=== PATIENT | male | born 1940 | race Caucasian/White ===

== ENCOUNTER → 2024-02-24 | Day surgery (SDC) | payer MEDICARE, OTHER, SELFPAY ==
[2024-02-24 10:10] VITALS: BP 122/78; PULSE 89; RESP 18; TEMP 36.6; O2SAT 95; BMI 26.8
[2024-02-24] MEDS: MANNITOL IV (10:38)
[2024-02-24] MEDS: ZOLEDRONIC ACID IV (10:38)
[2024-02-24 11:05] VITALS: BP 133/77; PULSE 87; RESP 18; TEMP 36.6; O2SAT 96
== END | disposition home or self-care (01) ==
PROVIDERS: PCP Family Medicine; Referring Provider Family Medicine; Visit Provider Family Medicine
PROC: (CPT 96365; principal; 2024-02-24 10:00)
DX: M81.0 Age-related osteoporosis without current pathological fracture (principal)
CPT/HCPCS: 96365; J3489

== ENCOUNTER → 2024-04-21 | Outpatient (CLI) | payer MEDICARE, OTHER, SELFPAY ==
[2024-04-21 09:11] LABS: Collection Type, Urine Clean Catch
[2024-04-21 09:27] LABS: Basophils # (Auto) 0.1 Thou/mm3 (0.0-0.2); Basophils % (Auto) 1 % (0-2.5); Eosinophils # (Auto) 0.5 Thou/mm3 (0.0-0.5); Eosinophils % (Auto) 6 % (0-10); Hematocrit 40.8 % (41.0-53.0); Hemoglobin 13.7 g/dL (13.5-16.0); Immature Granulocytes % (Auto) 1 % (0-0); Immature Granulocytes Auto 0.05 Thou/mm3 (0.00-0.00); Lymphocytes % (Auto) 12 % (10-50); Mean Corpuscular HGB Conc 33.6 g/dl (31.0-37.0); Mean Corpuscular Hemoglobin 29.6 pg (25.0-35.0); Mean Corpuscular Volume 88 fL (80-100); Monocytes % (Auto) 11 % (0-12); Neutrophils # (Auto) 6.1 Thou/mm3 (1.8-7.7); Neutrophils % (Auto) 70 % (37-80); Nucleated Red Blood Cell % 0 /100 WBC (0); Platelet Count 264 Thou/mm3 (140-440); RDW Standard Deviation 40.7 fL (35.1-43.9); Red Blood Count 4.63 Miln/mm3 (4.50-5.90); White Blood Count 8.7 Thou/mm3 (3.8-10.6)
[2024-04-21 09:30] LABS: Bilirubin,Urine Negative (Negative); Blood,Urine Negative (Negative); Clarity,Urine Clear (Clear/Hazy); Color,Urine Yellow (Lt Yel-Yel); Culture Indicated,Urine Not Indicated; Glucose, Urine Negative (Negative); Ketones,Urine Negative (Negative); Leukocyte Esterase,Urine Negative (Negative); Nitrite,Urine Negative (Negative); Protein,Urine 1+ (Neg - Trace); RBC,Urine 2 /hpf (0-3); Specific Gravity,Urine 1.026 (1.001-1.035); Squamous Epithelial Cell,Urine < 1 /hpf (0-5); Urobilinogen,Urine Negative mg/dL (0.0-1.0); WBC,Urine 1 /hpf (0-5)
[2024-04-21 09:48] LABS: Vitamin B12 310 pg/mL (211-911); Vitamin D 25 Hydroxy Total 42.7 ng/mL (7.3-40.2)
--- NOTE | 2024-04-21 10:00 | XR_ITS ---
Examination: Thyroid sonography complete Technique: Grayscale sonographic images thyroid lobes are carful analysis Exam date and time: Every 14/07/2024 0919 hrs. Indications: Left thyroid nodule 16 mm on ultrasound soft tissue neck study July 12, 2021 Findings: Right thyroid 4.1 x 1.8 cm No solid nodules Left thyroid 4.1 x 1.5 cm Lower pole left thyroid nodule with vascularity 13 x 15 x 13 mm Impression: Vascular lower pole left thyroid nodule, consider ultrasound-guided fine-needle aspiration of this nodule, as clinically warranted
[2024-04-21 10:02] LABS: Anion Gap 7 (7-16); BUN/Creatinine Ratio 19 Ratio (12-20); Blood Urea Nitrogen 23 mg/dL (9-23); Carbon Dioxide 28.2 mMol/L (20.0-31.0); Chloride 105 mMol/L (98-107); Creatinine (Component) 1.2 mg/dL (0.6-1.3); Glucose 92 mg/dL (74-106); Potassium 4.5 mMol/L (3.4-5.1); Sodium 140 mMol/L (136-145); eGFR 59 See Note
[2024-04-21 10:03] LABS: Alanine Aminotransferase 13 U/L (10-49); Albumin, Serum 4.3 gm/dL (3.4-4.8); Aspartate Amino Transferase 15 U/L (0-34); Bilirubin,Total 0.7 mg/dL (0.3-1.2); Calcium 9.6 mg/dL (8.3-10.6); Calcium (Corrected) 9.6 mg/dL (8.5-10.1); Globulin 2.2 gm/dL (2.3-3.5); Osmolality,Calculated 283 (275-295); Thyroid Stimulating Hormone 0.98 uIU/mL (0.55-4.78); Total Protein 6.5 gm/dL (5.7-8.2)
[2024-04-21 10:14] LABS: Alkaline Phosphatase 49 U/L (46-116)
== END | disposition home or self-care (01) ==
LOC: CDIM 08:40
PROVIDERS: PCP Family Medicine; Referring Provider Physician Assistant; Visit Provider Physician Assistant
DX: E04.1 Nontoxic single thyroid nodule (principal); E55.9 Vitamin D deficiency, unspecified; I10 Essential (primary) hypertension; M81.0 Age-related osteoporosis without current pathological fracture; R31.9 Hematuria, unspecified; R80.9 Proteinuria, unspecified; Z04.1 Encounter for examination and observation following transport accident; Z85.038 Personal history of other malignant neoplasm of large intestine
CPT/HCPCS: 36415; 76536; 80053; 80061; 81001; 82306; 82607; 84153; 84443; 85025

== ENCOUNTER 2024-05-20 10:50 | Outpatient (RCR) | payer MEDICARE, OTHER, SELFPAY ==
[2024-05-19 10:08] LABS: Basophils # (Auto) 0.1 Thou/mm3 (0.0-0.2); Basophils % (Auto) 1 % (0-2.5); Eosinophils # (Auto) 0.4 Thou/mm3 (0.0-0.5); Eosinophils % (Auto) 6 % (0-10); Immature Granulocytes % (Auto) 0 % (0-0); Immature Granulocytes Auto 0.02 Thou/mm3 (0.00-0.00); Lymphocytes # (Auto) 1.4 Thou/mm3 (1.0-4.8); Lymphocytes % (Auto) 20 % (10-50); Mean Corpuscular HGB Conc 34.2 g/dl (31.0-37.0); Mean Corpuscular Hemoglobin 29.6 pg (25.0-35.0); Mean Corpuscular Volume 87 fL (80-100); Monocytes # (Auto) 0.9 Thou/mm3 (0.0-0.8); Monocytes % (Auto) 13 % (0-12); Neutrophils % (Auto) 59 % (37-80); Nucleated Red Blood Cell % 0 /100 WBC (0); Platelet Count 299 Thou/mm3 (140-440); RDW Standard Deviation 39.9 fL (35.1-43.9); Red Blood Count 4.39 Miln/mm3 (4.50-5.90); White Blood Count 6.8 Thou/mm3 (3.8-10.6)
[2024-05-19 10:30] LABS: Carcinoembryonic Antigen 1.7 ng/mL (0.0-5.0)
[2024-05-19 10:40] LABS: Alanine Aminotransferase < 7 U/L (10-49); Albumin, Serum 4.2 gm/dL (3.4-4.8); Albumin/Globulin Ratio 1.8 (1.2-2.2); Alkaline Phosphatase 54 U/L (46-116); Anion Gap 9 (7-16); Aspartate Amino Transferase 15 U/L (0-34); BUN/Creatinine Ratio 15 Ratio (12-20); Bilirubin,Total 0.7 mg/dL (0.3-1.2); Blood Urea Nitrogen 17 mg/dL (9-23); Calcium 9.2 mg/dL (8.3-10.6); Calcium (Corrected) 9.2 mg/dL (8.5-10.1); Carbon Dioxide 25.5 mMol/L (20.0-31.0); Chloride 105 mMol/L (98-107); Creatinine (Component) 1.1 mg/dL (0.6-1.3); Globulin 2.4 gm/dL (2.3-3.5); Glucose 102 mg/dL (74-106); Osmolality,Calculated 279 (275-295); Potassium 4.2 mMol/L (3.4-5.1); Sodium 139 mMol/L (136-145); Total Protein 6.6 gm/dL (5.7-8.2); eGFR > 60 See Note
--- NOTE | 2024-05-25 00:16 | CTCFLWUP_ITS ---
Patient: KHALIF BAKER : 1940 Page 4 of 5 FOLLOW UP NOTE DATE OF SERVICE: 05/20/2024 NAME: KHALIF BAKER ACCOUNT: [id number] : 1940 AGE: 83 INTERVAL HISTORY: Patient here to follow-up on the history of rectal cancer. Patient have no new complaints. 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 REASON FOR TODAY?S VISIT: This is office follow-up visit. Mr. Baker is here at [facility] accompanied by his sister. He is clinically doing well. Denies any complaints. Denies any pain in the back. Denies any cough, chest pain, abdominal pain or leg cramps. Ambulating with the help of a cane. Has good appetite and good energy levels. Denies any weight loss. 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 Patient has been having rectal bleeding for about 1 year along with intermittent constipation prior to the surgery. 02/12/2018: Patient had colonoscopy. Biopsies were taken from mass in the rectosigmoid area. Pathology showed superficial colorectal mucosa. 03/04/2018: A CT scan of the chest abdomen pelvis with IV contrast was done at [facility] which showed a large sigmoid colon mass of at least 8 cm in length in the sigmoid colon with wall thickening extending into rectal region. No perirectal lymphadenopathy was noted. No mediastinal or pulmonary parenchymal nodules or liver lesions were identified. No evidence of retro- peritoneal lymphadenopathy on the CT scans. 03/10/2018: Patient had a repeat flexible sigmoidoscopy with multiple biopsies of the rectosigmoid mass. Pathology showed moderately differentiated adenocarcinoma. Molecular profiling showed K-tk mutation. No mutations were found in B-cora, Nras, Hras genes. No loss of expression of major mismatch r epair proteins. PDL 1 tumor proportion score 5%, positive. 03/25/2018: Patient had rectosigmoidectomy, coloproctostomy as well as incidental appendectomy. Patient tolerated surgery very well and recovered without any complications. Surgical pathology specimen showed 9.5 x 7 x 1.5 cm grade 2 mucinous adenocarcinoma with tumor penetration of muscularis propria and involvement of subserosal tissue. Lymphovascular invasion as well as perineural invasion were negative. 11 out of 22 lymph nodes were positive for metastatic carcinoma. The largest positive node measures 1.3 cm in size. It was staged as a pT3, pN2b, cM0, stage IIIc colonic adenocarcinoma. 05/02/2018: PET CT scan was done. It was a negative study for metastatic disease. 05/28/2018? 08/06/2018: Patient received 6 doses of modified FOLFOX 6 in the adjuvant setting. 09/08/2018: Patient was started on chemoradiation. He is taking Xeloda as a radiosensitizing agent. 01/02/2019: PET CT scan?negative for metastatic disease. 01/09/2019: CT scan of the chest abdomen and pelvis with IV contrast?negative for metastatic disease. 08/18/2018: CEA 1.1. 01/14/2019: CEA 1.2. 05/12/2019: CEA is 1.2 08/07/2019: PET CT scan?negative for metastatic disease. 08/12/2019: CEA 0.7. 12/16/2019: CEA 1.0. 04/20/2020: CEA 1.4. 06/05/2022: CT scan of the chest abdomen and pelvis with IV contrast 10/12/2022: CEA 1.6. 05/17/2023: CEA 1.3. 11/19/2023: CEA 1.7. OTHER MEDICAL HISTORY/CONDITIONS: FAMILY HISTORY: ?Clone Family Hx? SOCIAL HISTORY: MEDICATIONS: 1. amlodipine besylate (bulk) - 10 mg Daily 2. benazepril - 20 mg Daily 3. Calcium + D - 600 mg(1,500mg) -200 unit 1 tab Daily 4. Evenity - 105 mg/1.17 mL 2 Monthly 5. Hydrocortisone (Topical) - 1 % 1 As directed 6. ketoconazole - 2 % 1 As directed 7. omeprazole - 10 mg 1 Capsule Daily 8. Prolia - 60 mg/mL As directed 9. Vitamin D3 - 2,000 unit 1 Capsule Daily?Palabra Meds? Medications Last Reconciled by Kia Qiu MA on 05/20/2024 ALLERGIES: No Known Allergies REVIEW OF SYSTEMS: A complete 14-point review of systems was performed and is negative except as noted in interval history. PHYSICAL EXAMINATION: VITAL SIGNS: Temperature?96.4, B/P?128/73, Oxygen?Saturation?94% PAIN: 0 - No pain GENERAL APPEARANCE: Appears well, in no apparent distress, appropriately interactive. HEENT: Normocephalic, no temporal wasting, normal conjunctiva, no scleral icterus, normal hearing, lips without lesions, neck normal range of motion. CARDIOVASCULAR: Not assessed. PULMONARY: Normal respiratory effort, no respiratory distress or use of accessory muscles, speaking in full sentences, no tachypnea. EXTREMITIES: No pedal edema or cyanosis. SKIN: Normal skin appearance. NEUROLOGIC: Alert and oriented x4. PSHYCHIATRIC: Appropriate affect, mood normal, behavior normal, intact thought and speech. LABORATORY DATA: I have personally reviewed and interpreted each of the patient?s relevant lab tests, abnormal findings are below: Date 04/21/24 05/19/24 ??WHITE?BLOOD?COUNT?(Thou/mm3) 8.7 6.8 ??RED?BLOOD?COUNT?(Miln/mm3) 4.63 4.39?L ??HEMOGLOBIN?(gm/dl) 13.7 13.0?L ??HEMATOCRIT?(%) 40.8?L 38.0?L ??PLATELET?COUNT?(Thou/mm3) 264 299 ??NEUTROPHILS?%,?AUTO?(%) 70 59 ??LYMPH?%,?AUTO?(%) 12 20 ??NEUTROPHILS,?AUTO?(Thou/mm3) 6.1 4.0 ??GLUCOSE,RANDOM?(mg/dL) ? 102 ??BLOOD?UREA?NITROGEN?(mg/dL) ? 17 ??CREATININE?(mg/dL) ? 1.10 ??SODIUM?(mmol/L) ? 139 ??POTASSIUM?(mmol/L) ? 4.2 ??CHLORIDE?(mmol/L) ? 105 ??CrCl?(CandG)?(ml/min) ? 50.27 ??AST/SGOT?(Unit/L) ? 15 ??ALT/SGPT?(Unit/L) ? <?7?L ??ALKALINE?PHOSPHATASE?(Unit/L) ? 54 ??BILIRUBIN,?TOTAL?(mg/dL) ? 0.7 ??PROTEIN?TOTAL?(gm/dl) ? 6.6 ??ALBUMIN,?SERUM?(gm/dl) ? 4.2 ??GLOBULIN?(gm/dl) ? 2.4 ??ALBUMIN/GLOBULIN?RATIO ? 1.8 ??CALCIUM,?SERUM?(mg/dL) ? 9.2 ??CALCIUM?SERUM?(CORRECTED)?(mg/dL) ? 9.2 ??CEA?(O*)?(ng/ml) ? 1.7 ASSESSMENT/PLAN: 1. The patient denies any complaints. 2. CEA is 1.7. 3. There is no clinical evidence of recurrence of his colon cancer at this time. 4. Stage IIIc (pT3, PN2B, cM0) adenocarcinoma of the rectosigmoid colon status post surgery, adjuvant chemotherapy as well as adjuvant chemoradiation therapy. 5. Scoliosis 6. Osteoporosis 7. History of vertebroplasty No specific intervention required. Continue Prolia and calcium tablets for osteoporosis. I will see him back in clinic in 6 months with labs drawn prior to the visit.. Will do workup as patient is mildly anemic ORDERS: Order # Description [id number] Comprehensive Metabolic Panel - 12 + CBC with Auto Diff + MD Follow Up 6 Month [id number] Ferritin + Iron Panel + Vitamin B-12 + Folic Acid; Serum RETURN TO CLINIC: I will see him back in the clinic in 6 month. BILLING AND COMPLIANCE: I reviewed external records from providers outside my specialty as summarized above. I spent a total of 50 minutes on this patient?s care on the day of their visit excluding time spent related to any billed procedures. This time includes time spent with the patient as well as time spent documenting in the medical record, reviewing patients records and tests, obtaining history, placing orders, communicating with other healthcare professionals, counseling the patient, family or caregiver, and/or care coordination for the diagnoses above. Electronically Signed by: Isra Sanches MD T: 12:13 AM CC: Michele?Kateryna? PCP: No Primary/family, Physician Referring: Isra Sanches This document was completed utilizing speech recognition software. Grammatical errors, random word insertions, pronoun errors, and incomplete sentences are an occasional consequence of this system due to software limitations, ambient noise, and hardware issues. Any formal questions or concerns about the content, text or information contained within the body of this dictation should be directly addressed to the provider for clarification.
== END 2024-05-25 23:59 | disposition home or self-care (01) ==
LOC: SCTC 10:50
PROVIDERS: Referring Provider Internal Medicine Hematology & Oncology; Visit Provider Internal Medicine Hematology & Oncology
DX: C19 Malignant neoplasm of rectosigmoid junction (principal); C20 Malignant neoplasm of rectum; Z92.3 Personal history of irradiation; Z92.21 Personal history of antineoplastic chemotherapy; M41.9 Scoliosis, unspecified; M81.0 Age-related osteoporosis without current pathological fracture
CPT/HCPCS: 36591; 80053; 82378; 85025; 99212; A4216; J1642; G0463

== ENCOUNTER → 2024-07-07 | Outpatient (CLI) | payer MEDICARE, OTHER, SELFPAY ==
[2024-07-07 10:33] LABS: Basophils # (Auto) 0.1 Thou/mm3 (0.0-0.2); Basophils % (Auto) 1 % (0-2.5); Eosinophils # (Auto) 0.4 Thou/mm3 (0.0-0.5); Eosinophils % (Auto) 6 % (0-10); Hematocrit 39.3 % (41.0-53.0); Hemoglobin 13.4 g/dL (13.5-16.0); Immature Granulocytes % (Auto) 0 % (0-0); Immature Granulocytes Auto 0.02 Thou/mm3 (0.00-0.00); Lymphocytes # (Auto) 1.5 Thou/mm3 (1.0-4.8); Lymphocytes % (Auto) 23 % (10-50); Mean Corpuscular HGB Conc 34.1 g/dl (31.0-37.0); Mean Corpuscular Hemoglobin 29.5 pg (25.0-35.0); Mean Corpuscular Volume 87 fL (80-100); Monocytes # (Auto) 0.7 Thou/mm3 (0.0-0.8); Monocytes % (Auto) 11 % (0-12); Neutrophils # (Auto) 3.9 Thou/mm3 (1.8-7.7); Neutrophils % (Auto) 59 % (37-80); Nucleated Red Blood Cell % 0 /100 WBC (0); Platelet Count 292 Thou/mm3 (140-440); RDW Standard Deviation 41.1 fL (35.1-43.9); Red Blood Count 4.54 Miln/mm3 (4.50-5.90); White Blood Count 6.5 Thou/mm3 (3.8-10.6)
[2024-07-07 10:54] LABS: Prostate Specific Antigen 0.63 ng/mL (0-4.00)
[2024-07-07 11:01] LABS: Vitamin B12 334 pg/mL (211-911); Vitamin D 25 Hydroxy Total 62.3 ng/mL (7.3-40.2)
[2024-07-07 11:12] LABS: Alanine Aminotransferase 10 U/L (10-49); Albumin, Serum 4.4 gm/dL (3.4-4.8); Albumin/Globulin Ratio 1.8 (1.2-2.2); Alkaline Phosphatase 54 U/L (46-116); Anion Gap 10 (7-16); Aspartate Amino Transferase 16 U/L (0-34); BUN/Creatinine Ratio 22 Ratio (12-20); Bilirubin,Total 0.7 mg/dL (0.3-1.2); Blood Urea Nitrogen 24 mg/dL (9-23); Calcium 9.2 mg/dL (8.3-10.6); Calcium (Corrected) 9.2 mg/dL (8.5-10.1); Carbon Dioxide 26.7 mMol/L (20.0-31.0); Cardiac Risk Estimate 2.5 RATIO (4.0-6.7); Chloride 105 mMol/L (98-107); Cholesterol 164 mg/dL (132-200); Creatinine (Component) 1.1 mg/dL (0.6-1.3); Globulin 2.5 gm/dL (2.3-3.5); Glucose 94 mg/dL (74-106); HDL Cholesterol 65 mg/dL (40-60); LDL Cholesterol,Calculated 88 mg/dL (0-130); Osmolality,Calculated 287 (275-295); Potassium 4.4 mMol/L (3.4-5.1); Sodium 142 mMol/L (136-145); Thyroid Stimulating Hormone 1.05 uIU/mL (0.55-4.78); Total Protein 6.9 gm/dL (5.7-8.2); Triglycerides 57 mg/dL (30-150); eGFR > 60 See Note
== END | disposition home or self-care (01) ==
PROVIDERS: PCP Physician Assistant; Referring Provider Physician Assistant; Visit Provider Physician Assistant
DX: I10 Essential (primary) hypertension (principal); R31.9 Hematuria, unspecified; R80.9 Proteinuria, unspecified; M81.0 Age-related osteoporosis without current pathological fracture; E55.9 Vitamin D deficiency, unspecified; E04.1 Nontoxic single thyroid nodule; Z85.038 Personal history of other malignant neoplasm of large intestine
CPT/HCPCS: 36415; 80053; 80061; 81001; 82306; 82607; 84153; 84443; 85025

== ENCOUNTER → 2024-07-21 | Outpatient (CLI) | payer MEDICARE, OTHER, SELFPAY | END | disposition home or self-care (01) | PROVIDERS: PCP Physician Assistant; Referring Provider Physician Assistant; Visit Provider Physician Assistant | DX: Z53.8 Procedure and treatment not carried out for other reasons (principal) ==

== ENCOUNTER 2024-11-17 10:52 | Outpatient (RCR) | payer MEDICARE, OTHER, SELFPAY ==
[2024-11-16 10:32] LABS: Basophils # (Auto) 0.1 Thou/mm3 (0.0-0.2); Basophils % (Auto) 1 % (0-2.5); Eosinophils # (Auto) 1.5 Thou/mm3 (0.0-0.5); Eosinophils % (Auto) 15 % (0-10); Hematocrit 37.4 % (41.0-53.0); Hemoglobin 12.4 g/dL (13.5-16.0); Immature Granulocytes Auto 0.04 Thou/mm3 (0.00-0.00); Lymphocytes # (Auto) 1.6 Thou/mm3 (1.0-4.8); Lymphocytes % (Auto) 16 % (10-50); Mean Corpuscular HGB Conc 33.2 g/dl (31.0-37.0); Mean Corpuscular Hemoglobin 29.0 pg (25.0-35.0); Mean Corpuscular Volume 87 fL (80-100); Monocytes # (Auto) 1.2 Thou/mm3 (0.0-0.8); Monocytes % (Auto) 12 % (0-12); Neutrophils # (Auto) 5.6 Thou/mm3 (1.8-7.7); Neutrophils % (Auto) 56 % (37-80); Nucleated Red Blood Cell # 0.00 Thou/mm3 (0.00-0.00); Nucleated Red Blood Cell % 0 /100 WBC (0); Platelet Count 347 Thou/mm3 (140-440); RDW Standard Deviation 44.1 fL (35.1-43.9); Red Blood Count 4.28 Miln/mm3 (4.50-5.90); White Blood Count 9.9 Thou/mm3 (3.8-10.6)
[2024-11-16 10:56] LABS: Carcinoembryonic Antigen 1.4 ng/mL (0.0-5.0); Ferritin 230 ng/mL (10.5-307.3); Iron 54 mcg/dL (65-175); Percent Iron Saturation 21 % (20-55); Total Iron Binding Capacity 247 mcg/dL (250-425); Unsaturated Iron Binding 193 (225-295)
[2024-11-16 10:57] LABS: Folate 8.25 ng/mL (>5.38); Vitamin B12 336 pg/mL (211-911)
[2024-11-16 11:05] LABS: Alanine Aminotransferase < 7 U/L (10-49); Albumin, Serum 3.8 gm/dL (3.4-4.8); Albumin/Globulin Ratio 1.5 (1.2-2.2); Alkaline Phosphatase 56 U/L (46-116); Anion Gap 7 (7-16); Aspartate Amino Transferase 16 U/L (0-34); BUN/Creatinine Ratio 11 Ratio (12-20); Bilirubin,Total 0.5 mg/dL (0.3-1.2); Blood Urea Nitrogen 12 mg/dL (9-23); Calcium 9.3 mg/dL (8.3-10.6); Calcium (Corrected) 9.5 mg/dL (8.5-10.1); Carbon Dioxide 25.6 mMol/L (20.0-31.0); Chloride 103 mMol/L (98-107); Creatinine (Component) 1.1 mg/dL (0.6-1.3); Globulin 2.6 gm/dL (2.3-3.5); Glucose 108 mg/dL (74-106); Osmolality,Calculated 272 (275-295); Potassium 4.4 mMol/L (3.4-5.1); Sodium 136 mMol/L (136-145); Total Protein 6.4 gm/dL (5.7-8.2); eGFR > 60 See Note
--- NOTE | 2024-11-23 00:38 | CTCFLWUP_ITS ---
Patient: KHALIF SIEGEL : 1940 Page 3 of 5 FOLLOW UP NOTE DATE OF SERVICE: 11/17/2024 NAME: KHALIF SIEGEL ACCOUNT: [id number] : 1940 AGE: 84 INTERVAL HISTORY: Patient here to follow-up on the history of rectal cancer. Patient have no new complaints. 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 REASON FOR TODAY?S VISIT: This is office follow-up visit. Mr. Siegel is here at [facility] accompanied by his sister. He is clinically doing well. Denies any complaints. Denies any pain in the back. Denies any cough, chest pain, abdominal pain or leg cramps. Ambulating with the help of a cane. Has good appetite and good energy levels. Denies any weight loss. 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 Patient has been having rectal bleeding for about 1 year along with intermittent constipation prior to the surgery. 02/12/2018: Patient had colonoscopy. Biopsies were taken from mass in the rectosigmoid area. Pathology showed superficial colorectal mucosa. 03/04/2018: A CT scan of the chest abdomen pelvis with IV contrast was done at [facility] which showed a large sigmoid colon mass of at least 8 cm in length in the sigmoid colon with wall thickening extending into rectal region. No perirectal lymphadenopathy was noted. No mediastinal or pulmonary parenchymal nodules or liver lesions were identified. No evidence of retro- peritoneal lymphadenopathy on the CT scans. 03/10/2018: Patient had a repeat flexible sigmoidoscopy with multiple biopsies of the rectosigmoid mass. Pathology showed moderately differentiated adenocarcinoma. Molecular profiling showed K-tk mutation. No mutations were found in B-cora, Nras, Hras genes. No loss of expression of major mismatch r epair proteins. PDL 1 tumor proportion score 5%, positive. 03/25/2018: Patient had rectosigmoidectomy, coloproctostomy as well as incidental appendectomy. Patient tolerated surgery very well and recovered without any complications. Surgical pathology specimen showed 9.5 x 7 x 1.5 cm grade 2 mucinous adenocarcinoma with tumor penetration of muscularis propria and involvement of subserosal tissue. Lymphovascular invasion as well as perineural invasion were negative. 11 out of 22 lymph nodes were positive for metastatic carcinoma. The largest positive node measures 1.3 cm in size. It was staged as a pT3, pN2b, cM0, stage IIIc colonic adenocarcinoma. 05/02/2018: PET CT scan was done. It was a negative study for metastatic disease. 05/28/2018? 08/06/2018: Patient received 6 doses of modified FOLFOX 6 in the adjuvant setting. 09/08/2018: Patient was started on chemoradiation. He is taking Xeloda as a radiosensitizing agent. 01/02/2019: PET CT scan?negative for metastatic disease. 01/09/2019: CT scan of the chest abdomen and pelvis with IV contrast?negative for metastatic disease. 08/18/2018: CEA 1.1. 01/14/2019: CEA 1.2. 05/12/2019: CEA is 1.2 08/07/2019: PET CT scan?negative for metastatic disease. 08/12/2019: CEA 0.7. 12/16/2019: CEA 1.0. 04/20/2020: CEA 1.4. 06/05/2022: CT scan of the chest abdomen and pelvis with IV contrast 10/12/2022: CEA 1.6. 05/17/2023: CEA 1.3. 11/19/2023: CEA 1.7. OTHER MEDICAL HISTORY/CONDITIONS: FAMILY HISTORY: SOCIAL HISTORY: MEDICATIONS: 1. amlodipine besylate (bulk) - 10 mg Daily 2. benazepril - 20 mg Daily 3. Calcium + D - 600 mg(1,500mg) -200 unit 1 tab Daily 4. Evenity - 105 mg/1.17 mL 2 Monthly 5. ferrous sulfate - 325 mg (65 mg iron) 1 tab 1 tab on mon we saturday 6. Hydrocortisone (Topical) - 1 % 1 As directed 7. ketoconazole - 2 % 1 As directed 8. omeprazole - 10 mg 1 Capsule Daily 9. Prolia - 60 mg/mL As directed 10. Vitamin D3 - 2,000 unit 1 Capsule Daily Medications Last Reconciled by Jannet Davis MD on 11/17/2024 ALLERGIES: No Known Allergies REVIEW OF SYSTEMS: A complete 14-point review of systems was performed and is negative except as noted in interval history. PHYSICAL EXAMINATION: VITAL SIGNS: Temperature?97.6, B/P?128/58, Oxygen?Saturation?97% Weight?155?lbs (Change?since?11/16/24:?3.2?lbs) PAIN: 0 - No pain GENERAL APPEARANCE: Appears well, in no apparent distress, appropriately interactive. HEENT: Normocephalic, no temporal wasting, normal conjunctiva, no scleral icterus, normal hearing, lips without lesions, neck normal range of motion. CARDIOVASCULAR: Not assessed. PULMONARY: Normal respiratory effort, no respiratory distress or use of accessory muscles, speaking in full sentences, no tachypnea. EXTREMITIES: No pedal edema or cyanosis. SKIN: Normal skin appearance. NEUROLOGIC: Alert and oriented x4. PSHYCHIATRIC: Appropriate affect, mood normal, behavior normal, intact thought and speech. LABORATORY DATA: I have personally reviewed and interpreted each of the patient?s relevant lab tests, abnormal findings are below: Date 11/16/24 ??WHITE?BLOOD?COUNT?(Thou/mm3) 9.9 ??RED?BLOOD?COUNT?(Miln/mm3) 4.28?L ??HEMOGLOBIN?(gm/dl) 12.4?L ??HEMATOCRIT?(%) 37.4?L ??PLATELET?COUNT?(Thou/mm3) 347 ??NEUTROPHILS?%,?AUTO?(%) 56 ??LYMPH?%,?AUTO?(%) 16 ??NEUTROPHILS,?AUTO?(Thou/mm3) 5.6 ??GLUCOSE,RANDOM?(mg/dL) 108?H ??BLOOD?UREA?NITROGEN?(mg/dL) 12 ??CREATININE?(mg/dL) 1.10 ??SODIUM?(mmol/L) 136 ??POTASSIUM?(mmol/L) 4.4 ??CHLORIDE?(mmol/L) 103 ??CrCl?(CandG)?(ml/min) 46.95 ??AST/SGOT?(Unit/L) 16 ??ALT/SGPT?(Unit/L) <?7?L ??ALKALINE?PHOSPHATASE?(Unit/L) 56 ??BILIRUBIN,?TOTAL?(mg/dL) 0.5 ??PROTEIN?TOTAL?(gm/dl) 6.4 ??ALBUMIN,?SERUM?(gm/dl) 3.8 ??GLOBULIN?(gm/dl) 2.6 ??ALBUMIN/GLOBULIN?RATIO 1.5 ??CALCIUM,?SERUM?(mg/dL) 9.3 ??CALCIUM?SERUM?(CORRECTED)?(mg/dL) 9.5 ??CEA?(O*)?(ng/ml) 1.4 ??TOTAL?IRON?BINDING?CAP?(S*)?(mcg/dL) 247?L ??UNBOUND?IBC?(mcg/dL) 193?L ASSESSMENT/PLAN: 1. The patient denies any complaints. 2. CEA is 1.7. 3. There is no clinical evidence of recurrence of his colon cancer at this time. 4. Stage IIIc (pT3, PN2B, cM0) adenocarcinoma of the rectosigmoid colon status post surgery, adjuvant chemotherapy as well as adjuvant chemoradiation therapy. 5. Scoliosis 6. Osteoporosis 7. History of vertebroplasty No specific intervention required. Continue Prolia and calcium tablets for osteoporosis. I will see him back in clinic in 6 months with labs drawn prior to the visit.. Will do workup as patient is mildly anemic ORDERS: Order # Description [id number] Comprehensive Metabolic Panel - 12 + CEA + CBC with Auto Diff + [id number] Follow Up 6 Month RETURN TO CLINIC: I reviewed the diagnosis, prognosis, and recommended treatment/procedure options with the patient (and/or their legal site safety representative), including the potential benefits, risks, side effects and alternative therapies. We also discussed the option of no treatment and the possibility of clinical trial participation, if applicable. All questions were addressed, and they demonstrated understanding. They provided informed consent to proceed with the proposed plan of care. BILLING AND COMPLIANCE: I reviewed external records from providers outside my specialty as summarized above. I spent a total of 50 minutes on this patient?s care on the day of their visit excluding time spent related to any billed procedures. This time includes time spent with the patient as well as time spent documenting in the medical record, reviewing patients records and tests, obtaining history, placing orders, communicating with other healthcare professionals, counseling the patient, family or caregiver, and/or care coordination for the diagnoses above. Electronically Signed by: Isra Sanches MD T: 12:36 AM CC: ANDREINA Melendez PCP: Latanya Long Referring: Latanya Long This document was completed utilizing speech recognition software. Grammatical errors, random word insertions, pronoun errors, and incomplete sentences are an occasional consequence of this system due to software limitations, ambient noise, and hardware issues. Any formal questions or concerns about the content, text or information contained within the body of this dictation should be directly addressed to the provider for clarification.
== END 2024-11-24 23:59 | disposition home or self-care (01) ==
LOC: SCTC 10:52
PROVIDERS: PCP Physician Assistant; Referring Provider Physician Assistant; Visit Provider Internal Medicine Hematology & Oncology
DX: Z08 Encounter for follow-up examination after completed treatment for malignant neoplasm (principal); Z85.048 Personal history of other malignant neoplasm of rectum, rectosigmoid junction, and anus; Z92.21 Personal history of antineoplastic chemotherapy; Z92.3 Personal history of irradiation; M41.9 Scoliosis, unspecified; M81.0 Age-related osteoporosis without current pathological fracture
CPT/HCPCS: 36591; 80053; 82378; 82607; 82728; 82746; 83540; 83550; 85025; 99212; A4216; J1642; G0463

== ENCOUNTER 2025-02-09 08:33 | Outpatient (RCR) | payer MEDICARE, OTHER, SELFPAY | END 2025-02-24 23:59 | disposition home or self-care (01) | LOC: SCTC 08:33 | PROVIDERS: PCP Physician Assistant; Referring Provider Physician Assistant; Visit Provider Internal Medicine Hematology & Oncology | DX: Z85.048 Personal history of other malignant neoplasm of rectum, rectosigmoid junction, and anus (principal) | CPT/HCPCS: 36591; A4216; J1642 ==